=== PATIENT | female | born 1960 | race Caucasian/White ===

== ENCOUNTER 2017-02-20 09:54 | Outpatient (CLI) ==
--- NOTE | 2017-02-20 10:44 | DI ---
Examination: Two radiographic images of the chest. Comparison: None available. Reason for study: Cough. FINDINGS: No pneumothorax, pleural effusion, or focal consolidation. The cardiac silhouette is not enlarged. The imaged osseous structures are unremarkable. Impression: No acute cardiopulmonary process.
== END 2017-02-20 09:55 | disposition home or self-care (01) ==
LOC: RAD 09:54
PROVIDERS: ATTEND Nurse Practitioner Family
DX: R05 Cough (principal); F17.200 Nicotine dependence, unspecified, uncomplicated